=== PATIENT | male | born 1970 | race Caucasian/White ===

== ENCOUNTER 2018-02-19 11:16 | Emergency (ER) | payer MEDICAID, OTHER ==
[~2018-02-19] VITALS: Ht 195.6 cm; Wt 131.1 kg
[2018-02-19 13:20] LABS: CALCIUM 8.5 mg/dL (8.5-10.1); CARBON DIOXIDE 34.2 mmol/L (21-32); CHLORIDE SERUM 101 mmol/L (98-107); CREATININE SERUM 0.8 mg/dL (0.7-1.3); GFR1 > 60 mL/min; GLUCOSE SERUM 132 mg/dL (74-106); POTASSIUM SERUM 3.5 mmol/L (3.5-5.1); SODIUM SERUM 142 mmol/L (136-145)
[2018-02-19 14:36] VITALS: BP 118/75
== END 2018-02-19 14:36 | disposition home or self-care (01) ==
LOC: ED 11:16
PROVIDERS: Emergency Medicine
DX: J45.901 Unspecified asthma with (acute) exacerbation (principal)
CPT/HCPCS: J7512; J7613; J7644; Q0092

== ENCOUNTER 2018-12-17 07:27 | Emergency (ER) | payer MEDICAID, OTHER ==
[~2018-12-17] VITALS: Ht 195.6 cm; Wt 136.1 kg
[2018-12-17 07:41] VITALS: Ht 195.6 cm; Wt 136.1 kg
[2018-12-17 13:13] VITALS: BP 141/67
== END 2018-12-17 13:13 | disposition home or self-care (01) ==
LOC: ED 07:27
DX: H10.89 Other conjunctivitis (principal); J45.909 Unspecified asthma, uncomplicated
CPT/HCPCS: J7512; J7620

== ENCOUNTER 2019-02-07 10:57 | Inpatient (IN) | payer OTHER ==
[~2019-02-07] VITALS: Ht 195.6 cm; Wt 134.7 kg
[2019-02-07 13:12] LABS: BASOPHIL % 0.3 % (0-2); PLATELET COUNT 186 x10^3mcL (130-400); RED CELL DISTRIBUTION WIDTH 14.4 % (11.5-14.5)
[2019-02-07 13:22] LABS: CALCIUM 8.1 mg/dL (8.5-10.1); CARBON DIOXIDE 30.7 mmol/L (21-32); CHLORIDE SERUM 107 mmol/L (98-107); CREATININE SERUM 1.1 mg/dL (0.7-1.3); GFR1 > 60 mL/min; GLUCOSE SERUM 102 mg/dL (74-106); POTASSIUM SERUM 3.5 mmol/L (3.5-5.1); SODIUM SERUM 145 mmol/L (136-145)
[2019-02-07 13:27] LABS: ALBUMIN 3.4 g/dL (3.4-5.0); ALKALINE PHOSPHATASE 65 U/L (46-116); ALT/SGPT 36 U/L (16-63); AST/SGOT 28 U/L (15-37); BILIRUBIN TOTAL 0.5 mg/dL (0.20-1.00); CHOLESTEROL 178 mg/dL (<200); HDL CHOLESTEROL 55 mg/dL (40-60); PHOSPHOROUS 2.8 mg/dL (2.5-4.9); TOTAL PROTEIN, SERUM 6.4 g/dL (6.4-8.2); URIC ACID 5.6 mg/dL (3.5-7.2)
[2019-02-07] MEDS ORDERED: COMINH (13:50)
[2019-02-07] MEDS ORDERED: VENTOLIN H0.09 MG/A1 (13:50)
[2019-02-07 15:16] VITALS: BP 129/79
[2019-02-07 15:19] VITALS: Ht 195.6 cm; Wt 134.7 kg
[2019-02-07 16:15] VITALS: BP 100/57
[2019-02-07 16:55] VITALS: BP 129/79
[2019-02-07 17:47] LABS: microscopic required? NO
[2019-02-07 17:52] LABS: UA SPECIFIC GRAVITY >=1.030 (1.005-1.035); urine erythrocyte NEGATIVE (NEGATIVE)
[2019-02-07 20:25] VITALS: BP 101/63
[2019-02-08 05:03] VITALS: BP 102/51
[2019-02-08 06:29] LABS: BASOPHIL % 0.2 % (0-2); PLATELET COUNT 173 x10^3mcL (130-400); RED CELL DISTRIBUTION WIDTH 14.5 % (11.5-14.5)
[2019-02-08 07:10] LABS: CALCIUM 8.1 mg/dL (8.5-10.1); CARBON DIOXIDE 29.5 mmol/L (21-32); CHLORIDE SERUM 105 mmol/L (98-107); CREATININE SERUM 0.9 mg/dL (0.7-1.3); GFR1 > 60 mL/min; GLUCOSE SERUM 176 mg/dL (74-106); PHOSPHOROUS 3.4 mg/dL (2.5-4.9); POTASSIUM SERUM 4.3 mmol/L (3.5-5.1); SODIUM SERUM 141 mmol/L (136-145)
[2019-02-08 07:52] VITALS: BP 111/70
[2019-02-08 16:29] VITALS: BP 103/55
[2019-02-08 20:30] VITALS: BP 149/60
[2019-02-09 04:37] VITALS: BP 126/72
[2019-02-09 07:27] LABS: BASOPHIL % 0.1 % (0-2); PLATELET COUNT 176 x10^3mcL (130-400); RED CELL DISTRIBUTION WIDTH 14.3 % (11.5-14.5)
[2019-02-09 07:35] LABS: CALCIUM 8.1 mg/dL (8.5-10.1); CARBON DIOXIDE 28.7 mmol/L (21-32); CHLORIDE SERUM 103 mmol/L (98-107); CREATININE SERUM 0.8 mg/dL (0.7-1.3); GFR1 > 60 mL/min; GLUCOSE SERUM 150 mg/dL (74-106); MAGNESIUM 2.1 mg/dL (1.8-2.4); PHOSPHOROUS 3.6 mg/dL (2.5-4.9); POTASSIUM SERUM 4.2 mmol/L (3.5-5.1); SODIUM SERUM 139 mmol/L (136-145)
[2019-02-09 09:34] VITALS: BP 150/88
[2019-02-09] MEDS ORDERED: LEVOFLOXACIN500 M1 PO (11:08)
[2019-02-09] MEDS ORDERED: PRE20 PO (11:09)
[2019-02-09 13:05] VITALS: BP 150/88
== END 2019-02-09 14:08 | disposition home or self-care (01) | DRG 202 ==
LOC: ED 10:57 → MU 13:38
PROVIDERS: Emergency Medicine; ADMIT Internal Medicine
DX: J45.901 Unspecified asthma with (acute) exacerbation (principal); N17.0 Acute kidney failure with tubular necrosis; E83.42 Hypomagnesemia; A08.4 Viral intestinal infection, unspecified; Z68.35 Body mass index [BMI] 35.0-35.9, adult
CPT/HCPCS: 87046; 87046-59; 87804; 90658; 94150; G0378; J2920; J2930; J7030; J7512; J7620